=== PATIENT | female | born 1960 | race Caucasian/White ===

== ENCOUNTER 2017-03-04 07:44 | Emergency (ER) | payer OTHER ==
--- NOTE | 2017-03-04 08:25 | EDM.PDOC ---
ED HPI EYE COMPLAINT - General Chief Complaint: Eye Problems Stated Complaint: RIGHT EYE PAIN Time Seen by Provider: 03/04/17 08:02 Source: Reports: Patient History Limitations: Reports: No limitations - History of Present Illness INITIAL COMMENTS - FREE TEXT/NARRATIVE: The patient presents with right eye problems. When she woke up this morning, she had a brown sleetmute in her visual field in the right eye. She put some allergy drops in her eyes and now it is better. She has had floaters before but this was larger. She has no pain to her eye but she has to strain to see clearly. She has no FB to her eye. She was out mowing yesterday but she did not get anything in her eye. She wears glasses but not contacts. She has no cold symptoms such as fever, chills, cough, congestion or runny nose. Timing/Duration: Reports: Hour(s): Location: right eye Severity: mild Improves with: Reports: None Worsens with: Reports: None Associated Symptoms (Eye): Denies: pain, burning, itching, eyelid redness, eyelid swelling, eyelid matting, orbital redness, orbital swelling, orbital matting, FB sensation, decreased/blurred, vision, double vision, sensitivity to light, curtain - Related Data Allergies/ADRs: Allergies cephalexin monohydrate [From Keflex] Allergy (Verified 03/04/17 07:53) Rash Sulfa (Sulfonamide Antibiotics) Allergy (Verified 03/04/17 07:53) Rash Home Meds: Ambulatory Orders Medication Instructions Recorded Confirmed Fexofenadine [Jody] 1 tab PO DAILY 03/04/17 03/04/17 Naphazoline HCl/Pheniramine 1 drop EYEBOTH BID 03/04/17 03/04/17 [Allergy Eye Drops] Past Medical History HEENT History: Reports: Allergic rhinitis - Past Surgical History Female Surgical History: Reports: Hysterectomy Musculoskeletal Surgical History: Reports: Other (see below) Other Musculoskeletal Surgeries/Procedures:: Bunion removal Social & Family History - Tobacco Use Smoking Status *Q: Never Smoker Years of Tobacco use: 20 Used Tobacco, but Quit: Yes Month Tobacco Last Used: 2011 Second Hand Smoke Exposure: No - Caffeine Use Caffeine Use: Reports: None - Alcohol Use Days Per Week of Alcohol Use: 0 Number of Drinks Per Day: 0 Total Drinks Per Week: 0 - Recreational Drug Use Recreational Drug Use: No Drug Use in Last 12 Months: No ED ROS GENERAL - Review of Systems Review Of Systems: See Below Constitutional: Reports: no symptoms HEENT: Reports: Other (Brown spot in her right eye) Respiratory: Reports: No Symptoms Cardiovascular: Reports: No symptoms Endocrine: Reports: no symptoms GI/Abdominal: Reports: No symptoms : Reports: no symptoms Musculoskeletal: Reports: no symptoms Skin: Reports: no symptoms ED EXAM GENERAL W FULL EYE - Physical Exam Exam: See Below Exam Limited By: No limitations General Appearance: alert, no apparent distress Eye Exam: bilateral eye: EOMI, normal fundi, normal inspection, PERRL, other ( Globe looks normal, no FB, no corneal abrasions) Visual acuity (R) 20/: 30 Visual acuity (L) 20/: 20 With Correction: Yes IOP (R) in mmH IOP (L) in mmH IOP measure with (equipment): other Eyelids: bilateral: normal appearance Conjunctiva & Sclera: bilateral: normal appearance Cornea Exam: bilateral: normal appearance Extraocular Movements: bilateral: intact Pupillary Size: bilateral: 3 mm Pupillary Reaction: bilateral: brisk Anterior Chamber: bilateral: normal appearance Posterior Chamber: bilateral: normal funduscopic Ears: normal external exam Nose: normal inspection Head: atraumatic, normocephalic Respiratory/Chest: no respiratory distress Course - Vital Signs Last Recorded V/S: Last Vital Signs Temp 97.7 F 03/04/17 07:50 Pulse 64 03/04/17 07:50 Resp 16 03/04/17 07:50 BP 134/98 H 03/04/17 07:50 Pulse Ox 100 03/04/17 07:50 - Re-Assessments/Exams Free Text/Narrative Re-Assessment/Exam: 03/04/17 08:26 I did not see anything to explain the vision changes she had this morning. I did US her eye and there was no sign of a retinal detachment. I will have her follow up with her medication aid tomorrow and return if she has any other problems. Departure - Departure Time of Disposition: 08:30 Disposition: Home, Self-Care 01 Condition: good Clinical Impression: Vitreous floaters of right eye Forms: ED Department Discharge Additional Instructions: Continue with your allergy eye drops. Follow up with your medication aid tomorrow. Please return if you develop pain in your eye or if you have anymore visual changes.
[2017-03-04 10:16] VITALS: BP 134/98
== END 2017-03-04 08:32 | disposition home or self-care (01) ==
LOC: JD.ED 07:44
DX: H43.391 Other vitreous opacities, right eye (principal); Z88.2 Allergy status to sulfonamides; Z88.8 Allergy status to other drugs, medicaments and biological substances; Z90.710 Acquired absence of both cervix and uterus
CPT/HCPCS: 99282; 99284

== ENCOUNTER 2022-05-16 02:09 | Emergency (ER) | payer OTHER ==
[2022-05-16 02:23] VITALS: BP 164/96; PULSE 66
== END 2022-05-16 02:50 | disposition home or self-care (01) ==
LOC: JD.ED 02:09
DX: R21 Rash and other nonspecific skin eruption (principal); Z88.2 Allergy status to sulfonamides; Z88.1 Allergy status to other antibiotic agents
CPT/HCPCS: 99282